=== PATIENT | male | born 1945 | race Caucasian/White ===

== ENCOUNTER → 2020-04-02 14:10 | Outpatient (BNVA) | payer MEDICARE, SELFPAY | PROVIDERS: PCP Nurse Practitioner Family; Visit Provider Internal Medicine Cardiovascular Disease | DX: I34.8 Other nonrheumatic mitral valve disorders (principal) | CPT/HCPCS: 99212 ==

== ENCOUNTER → 2021-04-06 13:15 | Outpatient (BNVA) | payer MEDICARE, SELFPAY | PROVIDERS: PCP Nurse Practitioner Family; Referring Provider Nurse Practitioner Family; Visit Provider Internal Medicine Cardiovascular Disease | DX: I34.8 Other nonrheumatic mitral valve disorders (principal); Z79.82 Long term (current) use of aspirin | CPT/HCPCS: 93005; 99212 ==

== ENCOUNTER → 2022-07-07 15:17 | Outpatient (BNVA) | payer MEDICARE, SELFPAY | PROVIDERS: PCP Nurse Practitioner Family; Referring Provider Nurse Practitioner Family; Visit Provider Internal Medicine Cardiovascular Disease | DX: I34.89 Other nonrheumatic mitral valve disorders (principal) | CPT/HCPCS: 93005; 99212 ==

== ENCOUNTER 2023-07-13 09:24 | Outpatient (AMB) | payer OTHER, SELFPAY ==
[2023-07-13 10:19] VITALS: BP 120/70; PULSE 75; BMI 32.0
--- NOTE | 2023-07-13 10:19 | MHC.OFFVIS ---
Intake Vital Signs 07/13/23 10:19 Height 5 ft 7 in Weight 204 lb 9.423 oz BMI 32.0 BP 120/70 Blood Pressure Location Lt brachial Position Sitting Pulse 75 Intake Visit Reasons: 1 yr f/up Intake Note: pt states that he its doing fine. 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 He was seen for perioperative cardiovascular risk assessment. He had EKG done which showed PVCs and echocardiography showed hyperdynamic left ventricle with systolic anterior motion of the mitral valve chordee without any LVOT obstruction. He was started on beta-mery he underwent surgery which was uneventful. He has gone through recovery and has been quite active without any symptoms. On follow-up is denying any chest discomfort or shortness of breath or dizziness. Physically active without any issues. Blood pressure control is good. Continues do well on follow-up. 07/13/2023: He returns for follow-up after 1 year. He has been doing well. He is exercising every day without any exertional symptoms. No chest discomfort shortness of breath. No dizziness or lightheadedness or palpitations. [facility] Medical History (Updated 07/13/23 @ 10:39 by Ash Kidd MD) Asymptomatic PVCs Sciatica Hip arthritis Surgical History History of wisdom tooth extraction H/O total hip arthroplasty Family History Father Unknown family medical history Mother Unknown family medical history Social History Alcohol intake: current Alcohol intake frequency: a few times a month Alcohol type: beer Patient Tobacco Use Status: Former Tobacco user Quit Date: Years Smoked: 5 years Review of Systems Const Denies chills, Denies fatigue, Denies fever(s), Denies frequent falls, Denies weakness, Denies weight gain and Denies weight loss ENT Denies dizziness Card Denies chest pain, Denies leg edema, Denies lightheadedness, Denies palpitations, Denies dyspnea and Denies dyspnea on exertion Resp Denies cough, Denies dyspnea and Denies dyspnea on exertion GI Denies hematochezia Musc Denies abnormal gait, Denies muscle weakness, Denies numbness, Denies radiating pain into limb and Denies tingling Neuro Denies abnormal gait, Denies dizziness, Denies frequent falls, Denies numbness, Denies tingling and Denies weakness Endo Denies fatigue and Denies palpitations Physical Exam Vital Signs: Last Vital Signs Pulse 75 07/13/23 10:19 BP 120/70 07/13/23 10:19 BMI result Body Mass Index 32.0 GENERAL APPEARANCE: in no acute distress, well developed, well nourished. NECK/THYROID: no carotid bruit, no jugular venous distention. SKIN: no suspicious lesions, warm and dry. HEART: Systolic murmur (decreases with handgrip) regular rate and rhythm, S1, S2 normal. LUNGS: clear to auscultation bilaterally. ABDOMEN: normal, bowel sounds present, soft, nontender, nondistended. EXTREMITIES: no clubbing, cyanosis, or edema. PERIPHERAL PULSES: equal. NEUROLOGIC: nonfocal, alert and oriented. PSYCH: mood/affect full range. Office Procedures EKG Details: Sinus rhythm 75 beats per minute, normal axis, otherwise normal EKG, QTC 470 milliseconds. [id number], Complete Assessment & Plan Assessment & Plan (1) Systolic anterior movement of mitral valve: Code(s): I34.8 - Other nonrheumatic mitral valve disorders (2) Asymptomatic PVCs: Code(s): I49.3 - Ventricular premature depolarization Plan 78-year-old gentleman who is here for follow-up. He was seen for perioperative cardiovascular risk assessment and had premature ventricular complexes with led to echocardiography showing systolic anterior motion of mitral valve chordae only, systolic anterior motion of the mitral valve leaflets was not noted. He was advised to keep himself well hydrated. He underwent surgery and has done fine since then. He is physically active and has no exertional symptoms. Once again I have advised him to keep himself well hydrated. Clinically stable currently. We will repeat echocardiography to reassess the systolic anterior motion of the mitral valve chordae. Thank you for allowing me to participate in the care of your patient. Please feel free to contact me if you have any questions. Orders: Orders CA echo transthorac w con Today I34.8 - Other nonrheumatic mitral valve disorders Coding Level of Care Code Est Pt Level 3 (19866) Diagnoses Systolic anterior movement of mitral valve I34.8 Asymptomatic PVCs I49.3 CPT Codes EKG - CPT: 56204-[id number], Complete ([id number])
== END 2023-07-13 10:44 | disposition home or self-care (01) ==
PROVIDERS: PCP Nurse Practitioner Family; Visit Provider Internal Medicine Cardiovascular Disease
DX: I34.89 Other nonrheumatic mitral valve disorders (principal); I49.3 Ventricular premature depolarization
CPT/HCPCS: 93010; 99213

== ENCOUNTER → 2023-07-13 09:24 | Outpatient (BNVA) | payer OTHER, SELFPAY | PROVIDERS: PCP Nurse Practitioner Family; Visit Provider Internal Medicine Cardiovascular Disease | DX: I34.89 Other nonrheumatic mitral valve disorders (principal); I49.3 Ventricular premature depolarization | CPT/HCPCS: 93005; 99212 ==

== ENCOUNTER → 2023-08-16 10:59 | Outpatient (REF) | payer OTHER, SELFPAY ==
--- NOTE | 2023-08-16 11:01 | CA_ITS ---
Transthoracic Echocardiogram Patient (Last, First, Middle): Olivier Tony S Gender: Male Date of : 1945 Age: 78 Procedure Date: 08/16/2023 Procedure Type: Transthoracic Echocardiogram Location: OP Height: 175.26 cm Weight: 95.26 kg BSA: 2.11 m2 Heart Rate: bpm BP: 140 / 74 mmHg Card Seller: CRISELDA Referring MD: Ash Kidd MD Symptoms: I34.8 - Other nonrheumatic mitral valve disorders Study Quality: Adequate Conclusions: - Normal left ventricular cavity size. There is mildly increased left ventricular wall thickness. The left ventricular systolic function is hyperdynamic. The visually estimated ejection fraction is >70%. - There is no dynamic left ventricular outflow tract obstruction. There is dynamic mid left ventricular obstruction. - Normal right ventricular cavity size and systolic function. Findings Left Ventricle Normal left ventricular cavity size. There is mildly increased left ventricular wall thickness. The left ventricular systolic function is hyperdynamic. The visually estimated ejection fraction is >70%. There is no evidence of regional wall motion abnormalities. There is no dynamic left ventricular outflow tract obstruction. There is dynamic mid left ventricular obstruction. Abnormal diastolic function is noted. Spectral Doppler is indicative of a pseudonormal filling pattern. E/E prime ratio is between 8 and 15 consistent with indeterminate filling pressures. There is moderate septal asymmetric hypertrophy. Normal GLS -17.9%. Right Ventricle Normal right ventricular cavity size and systolic function. Atria The left atrium is normal in size. The right atrium is normal in size. Aortic Valve There is a normal trileaflet aortic valve. There is mild calcification of the aortic valve. There is no aortic valve stenosis. There is trace (trivial) aortic valve regurgitation. Mitral Valve Normal mitral valve structure and function. There is no mitral valve regurgitation. There is no mitral valve stenosis. Pulmonic Valve The pulmonic valve is normal. There is trace pulmonic valve regurgitation. Tricuspid Valve Normal tricuspid valve structure. There is no tricuspid valve regurgitation. Normal right atrial pressure. There is no evidence of pulmonary hypertension. Great Vessels All visible segments of the aorta are normal in size. Venous The inferior vena cava is normal in size and collapses greater than 50% with inspiration. Pericardium/Pleural There is no evidence of pericardial effusion. Prior Study Comparison No significant change compared to prior study dated: 04/10/2019. Measurements 2D Linear Measurements IVSd: 1.38 0.6-0.9/0.6-1.0 cm LVIDd: 3.76 3.9-5.3/4.2-5.9 cm LVIDd Index: 1.78 2.4-3.2/2.2-3.1 cm/m2 LVIDs: 2.12 2.0-3.6 cm LVPWd: 1.07 0.7-1.1 cm LA Diam: 4.40 2.7-3.8/3.0-4.0 cm LAIDs Index: 2.09 1.5-2.3 cm/m2 LV Mass: 193.78 67-162/88-224 g LV Mass Index: 91.84 43-95/49-115 g/m2 LVOT Diam: 2.10 3.0+(-)1.3 cm 2D Systolic Function EF 4C: 69.20 >55% EF 2C: 68.70 >55% EF BiP: 67.40 >55% Mitral Valve MV Pk E: 0.49 MV PK A: 0.90 MV Decel Time: 330.00 E/A: 0.60 E'Lateral: 3.92 E'Medial: 3.81 E/E' Med: 12.90 E/E' Lat: 12.60 PHT: 97.00 MVA PHT: 2.27 Decel [place]: 1.49 Aortic Valve AoV Pk Kyler: 1.43 AoV Mn Kyler: 1.03 AoV VTI: 0.29 AoV Pk Grad: 8.00 Aov Mn Grad: 5.00 KAREEM Cont.VTI: 3.39 LVOT LVOT Pk Kyler: 1.34 LVOT Mn Kyler: 1.13 LVOT VTI: 0.28 LVOT Pk Grad: 7.00 LVOT Mn Grad: 5.00 LVOT Diam: 2.10 LVOT Area: 3.46 Diastolic Function MV Pk E: 0.49 MV Pk A: 0.90 E/A: 0.60 E'Medial: 3.81 E/E' Med: 12.90 E' Laterial: 3.92 E/E' Lat: 12.60 Right Ventricle TAPSE (mm): 20.80 TVS' Kyler: 14.10 Tricuspid Valve RA Press: 3.00 Great Vessels Aorta Sinus of Valsalva: 3.51 2.0-3.[address] [place]: 2.68 1.7-3.4 cm Ao Asc: 3.50 2.1-3.4 cm Updated in Other Vendor System with Status of Final Ash Kidd MD electronically signed on 08/16/2023 12:20:36 PM with status of Final
== END ==
LOC: HO.CARD 10:59
PROVIDERS: Visit Provider Internal Medicine Cardiovascular Disease
DX: I34.81 Nonrheumatic mitral (valve) annulus calcification (principal)
CPT/HCPCS: 93306; 93356

== ENCOUNTER → 2023-08-16 11:01 | Outpatient (BNV) | payer OTHER, SELFPAY | PROVIDERS: Visit Provider Internal Medicine Cardiovascular Disease | DX: I42.1 Obstructive hypertrophic cardiomyopathy (principal) | CPT/HCPCS: 93306; 93356 ==

== ENCOUNTER 2024-03-29 09:53 | Outpatient (AMB) | payer OTHER, SELFPAY ==
--- NOTE | 2024-03-29 09:58 | MHC.PC.OV ---
Vital Signs 03/29/24 10:01 Height 5 ft 9 in Weight 200 lb 8 oz BMI 29.6 BP 130/70 Blood Pressure Location Rt brachial Position Sitting Respiration 14 Pulse 69 Pulse Source Pulse Oximeter Temp 97.4 F Temp Source Oral Pulse Oximetry (%) 97 Oxygen Delivery Method Room Air Intake Visit Reasons: [id number] Intake Note: establish care Allergies Penicillins [PENICILLINS] Allergy (Intermediate, Verified 03/29/24 09:59) SWELLING OF THUMBS penicillin V Allergy (Unknown, Verified 03/29/24 09:59) hives Tobacco use date assessed: 03/29/24 Fall risk assessment: No Falls in past year Last assessed Fall Risk: 03/29/24 Dental Screening Dental Screen Date: 03/29/24 Did you have a dental visit in the last 12 months?: No Did you have a dental problem in the last 6 months where you did not have access to dental care?: No Was dental information given to patient?: Patient has dentist HPI [id number] HPI Details New Patient? ?? Prior PCP:? Last office visit/CPE:? Acute issue(s):? ?? PMHx:??PVCs. Anterior?movement?of?mitral?valve chodee without?of?outlet?flow?obstruction. Followed?by?cardiology: ?EKG showed PVCs and echocardiography showed hyperdynamic left ventricle with systolic anterior motion of the mitral valve chordee without any LVOT obstruction. SurgHx:? R Hip replacement SocHx: Nonsmoker. EtOH1 beer a week. PFSH Medical History Asymptomatic PVCs Sciatica Hip arthritis Surgical History History of wisdom tooth extraction H/O total hip arthroplasty Family History Father Unknown family medical history Mother Unknown family medical history Social History Housing: House Alcohol intake: current Alcohol intake frequency: a few times a month Alcohol type: beer Patient Tobacco Use Status: Former Tobacco user Years Smoked: 5 years e-Cigarette/Vaping Use: Never Used service: Yes Current occupational status: retired Current occupational exposures/hazards: No Cognitive needs: No Hearing needs: No Vision needs: Yes Questionnaire PHQ-9 Over the last 2 weeks, how often have you been bothered by any of the following problems? 1. Little interest or pleasure in doing things: not at all 2. Feeling down, depressed, or hopeless: not at all 3. Trouble falling or staying asleep, or sleeping too much: not at all 4. Feeling tired or having little energy: not at all 5. Poor appetite or overeating: not at all 6. Feeling bad about yourself - or that you are a failure or have let yourself or your family down: not at all 7. Trouble concentrating on things, such as reading the newspaper or watching television: not at all 8. Moving or speaking so slowly that other people could have noticed. Or the opposite - being so fidgety or restless that you have been moving around a lot more than usual: not at all 9. Thoughts that you would be better off or of hurting yourself in some way: not at all Total score: 0 Depression Screening Interpretation: Negative Depression Screening Done: Yes 13933 - PHQ-9 Billing: Yes Source: Developed by Drs. Tee Yu, Lanny Dixon, iMles Zee and colleagues, with an educational delphine from [employer]. Thrive Questionnaire Date Thrive assessed: 03/29/24 I am a: Patient What is your living situation today?: I have a steady place to live Within the past 12 months, did the food you bought not last and you didn't have the money to get more?: Never true Within the past 12 months, did you worry whether your food would run out before you got money to buy more?: Never true Do you have trouble paying for medicines?: No Do you have trouble getting transportation to medical appointments?: No Do you have trouble paying your heating and electricity bill?: No Do you have trouble taking care of your child, family member or friend?: No Do you have trouble with day-to-day activities such as bathing, preparing meals, shopping, managing finances, etc.?: No Are you currently unemployed and looking for a job?: No Are you interested in more education?: No Please select the resources that you would like help with: None Currently or been in a relationship where the following occur: No concerns reported THRIVE Score: 0 AUDIT C Alcohol Use Questionnaire (AUDIT-C) 1. How often do you have a drink containing alcohol?: 2-3 times a week 2. How many drinks containing alcohol do you have on a typical day when you are drinking?: 1 or 2 3. How often do you have six or more drinks on one occasion?: Never Total Score: 3 JENNIFER-7 AMB Questionnaire JENNIFER-7 Date JENNIFER - 7 assessed: 03/29/24 Feeling nervous, anxious, or on edge: 0 = Not at all Not being able to stop or control worryin = Not at all Worrying too much about different things: 0 = Not at all Trouble relaxin = Not at all Being so restless that it is hard to sit still: 0 = Not at all Becoming easily annoyed or irritable: 0 = Not at all Feeling afraid as if something awful might happen: 0 = Not at all Total JENNIFER-7 score (0-4 normal; 5-9 mild; 10-14 moderate; 15-21 severe): 0 Source: Developed by Drs. Tee Yu, Lanny Dixon, Miles Zee and colleagues, with an educational delphine from [employer]. JENNIFER-7 Assessment Billing JENNIFER-7 Assessment Tool: JENNIFER-7 Assessment 61001 Review of Systems Const Denies chills, Denies fatigue, Denies fever(s), Denies headache(s) and Denies weakness Eyes Denies change in vision ENT Denies dizziness, Denies headache(s), Denies hearing loss, Denies nasal congestion, Denies sinus pain, Denies sinus pressure and Denies sore throat Card Denies chest pain, Denies lightheadedness, Denies dyspnea and Denies other (palpitations) Resp Denies cough, Denies dyspnea and Denies wheezing GI Denies abdominal pain, Denies melena, Denies hematochezia, Denies change in bowel habits, Denies dyspepsia and Denies nausea Denies hematuria and Denies dysuria Musc Denies abnormal gait, Denies myalgias, Denies arthralgias, Denies numbness and Denies tingling Skin/Breast Denies rash, Denies unusual bruising and Denies wounds Neuro Denies abnormal gait, Denies dizziness, Denies headache(s), Denies memory loss, Denies numbness, Denies Sensory deficit (Neuro), Denies tingling and Denies weakness Psych Denies anxiety, Denies depression and Denies memory loss Endo Denies cold intolerance, Denies fatigue, Denies heat intolerance, Denies polydipsia and Denies polyuria Carter/Lymph Denies easy bleeding and Denies easy bruising Aller/Immun Denies wheezing Physical exam (Primary Care) Vital Signs: Last Vital Signs Temp 97.4 F 03/29/24 10:01 Pulse 69 03/29/24 10:01 Resp 14 03/29/24 10:01 BP 130/70 03/29/24 10:01 Pulse Ox 97 03/29/24 10:01 Oxygen Delivery Method Room Air 03/29/24 10:01 BMI result Body Mass Index 29.6 Tobacco/Smoking Status: Tobacco use Status Tobacco use date assessed 03/29/24 03/29/24 10:05 Patient Tobacco Use Status Former Tobacco user 03/29/24 10:05 e-Cigarette/Vaping Use Never Used 03/29/24 10:05 PHQ-9: PHQ-9 Score PHQ-9: Total score 0 03/29/24 10:11 Depression Screening Interpretation: Negative Thrive Assessment: Date of Thrive Assessment Date Thrive assessed 03/29/24 03/29/24 10:05 Currently or been in a relationship where the following occur: No concerns reported Const General: no acute distress, well developed, alert and awake Nutritional Appearance: well nourished Orientation/consciousness: patient oriented x3 HENMT Head: Yes normocephalic and Yes atraumatic Ears: hearing grossly normal bilaterally and TM's normal bilaterally General nose exam: Normal external nose present and Normal nares present Mouth: Normal oral and palatal mucosa present and moist mucous membranes Teeth and gingiva: dentition normal Throat: Yes posterior oropharynx normal Eyes General: appearance normal, both eyes and all related structures Pupils: Equal, round and reactive pupils present and Pupil accommodation reflex normal EOM: EOMs intact bilaterally Neck Neck: Yes normal visual inspection, Yes no lymphadenopathy and Yes trachea midline Thyroid: Thyroid normal Carotids: no bruits Lymphatic: no lymphadenopathy noted Chest Chest palpation & inspection: normal inspection of the chest Resp Effort & Inspection: normal respiratory effort Auscultation: clear to auscultation bilaterally Cardio Rate: regular rate Rhythm: regular rhythm Heart sounds: S1 normal heart sound present, S2 normal heart sound present, no gallops, Murmur heart sound present and no rubs Bruits: no abdominal aortic bruits and no carotid bruits GI Palpation (GI): No Abdominal aortic bruit present, Soft to palpation, nontender, No hepatosplenomegaly present and No Rebound tenderness present Auscultation: normal bowel sounds General: Yes no CVA tenderness Back/Spine/Pelvis Back: no CVA tenderness Cervical Spine: cervical ROM normal and No Cervical spine tenderness Thoracic/Lumbar Spine: thoraco-lumbar ROM normal, No pain with thoraco-lumbar ROM, No thoracic spinal tenderness and No lumbar spinal tenderness Skin Lesions: no lesions Rashes: no rashes Trauma: no lacerations or abrasions Wounds: no wounds Nails: normal Neuro General: patient oriented x3 Cranial nerves: Yes Equal, round and reactive pupils present Cognition (Neuro): normal cognition Gait exam (Neuro): Normal gait present Motor exam (neuro): 5/5 motor strength present throughout Sensory Exam: No Sensory deficit (Neuro) Deep tendon reflexes (DTR's): Right patellar reflex intensity grade: 2+ and Left patellar reflex intensity grade: 2+ Extrem General: Yes normal to inspection and No edema Psych Appearance: grossly normal Affect: normal affect Attitude: cooperative Thought process: Normal thought process present Coding Level of Care Code New Pt Level 3 (06061) New Pt Prev Care >65yr (96187) Diagnoses Asymptomatic PVCs I49.3 Systolic anterior movement of mitral valve I34.8 Systolic murmur R01.1 Screening for colon cancer Z12.11 Screening PSA (prostate specific antigen) Z12.5 Adult general medical exam Z00.00 Additional Codes JENNIFER-7 Assessment Billing - JENNIFER-7 Assessment Tool: JENNIFER-7 Assessment 88385 ([id number]) PHQ-9 - 85162 - PHQ-9 Billing: Yes ([id number]) Assessment & Plan Assessment & Plan (1) Asymptomatic PVCs: Code(s): I49.3 - Ventricular premature depolarization Category: Medical Plan: Controlled?with?metoprolol Stable Continue?metoprolol?and?follow-up?with?Cardiology?as?recommended (2) Systolic anterior movement of mitral valve: Code(s): I34.8 - Other nonrheumatic mitral valve disorders Category: Medical Plan: Stable.??Followed?by?Cardiology?annually There?was?no?evidence?of?low?obstruction.??Patient?is?able?due?exercise?and is?not?injured?in?any?way. Follow-up?Cardiology?as?recommended (3) Systolic murmur: Code(s): R01.1 - Cardiac murmur, unspecified Category: Medical Plan: Prominent?systolic?murmur?over?mitral?and?aortic?regions, due?to?mitral?valve?changes?listed?above. Stable (4) Screening for colon cancer: Code(s): Z12.11 - Encounter for screening for malignant neoplasm of colon Category: Medical Plan: Will?discuss?with?patient?at?is?follow-up?appointment (5) Screening PSA (prostate specific antigen): Code(s): Z12.5 - Encounter for screening for malignant neoplasm of prostate Category: Medical Plan: Will?check?PSA (6) Adult general medical exam: Code(s): Z00.00 - Encounter for general adult medical examination without abnormal findings Category: Medical Plan: 78-year-old?male?presents as?new?patient?for?extended?exam Encouraged?healthy?diet?with?active?lifestyle?and?plenty?of?exercise Patient?notes?that?he?continues?to?lift?weight?and?walk
[2024-03-29 10:01] VITALS: BP 130/70; PULSE 69; RESP 14; TEMP 36.3; O2SAT 97; BMI 29.6
== END 2024-03-29 10:32 | disposition home or self-care (01) ==
PROVIDERS: PCP Family Medicine; Visit Provider Family Medicine
DX: Z00.00 Encounter for general adult medical examination without abnormal findings (principal); I49.3 Ventricular premature depolarization; I34.89 Other nonrheumatic mitral valve disorders; R01.1 Cardiac murmur, unspecified; Z12.11 Encounter for screening for malignant neoplasm of colon; Z12.5 Encounter for screening for malignant neoplasm of prostate

== ENCOUNTER → 2024-03-29 09:53 | Outpatient (BNVA) | payer OTHER, SELFPAY | PROVIDERS: PCP Family Medicine; Visit Provider Family Medicine | DX: Z00.00 Encounter for general adult medical examination without abnormal findings (principal); I49.3 Ventricular premature depolarization; I34.89 Other nonrheumatic mitral valve disorders; R01.1 Cardiac murmur, unspecified | CPT/HCPCS: 96127; 99387 ==

== ENCOUNTER 2024-04-18 10:47 | Outpatient (REF) | payer OTHER, SELFPAY ==
[2024-04-18 14:24] LABS: Appearance Urine Clear; Color Urine Yellow; Glucose Urine UA Negative (Negative); Leukocyte Esterase Urine Negative (Negative); Nitrite Urine Negative (Negative); PH 6.5 (5.0-9.0); Specific Gravity - Urine >= 1.030 (1.005-1.025); Urine Blood Negative (Negative); Urine Ketones Negative (Negative); Urine Protein Negative (Neg-Trace)
[2024-04-18 14:28] LABS: MANUAL DIFF FLAG NO
[2024-04-18 14:52] LABS: Basophils Percent Auto 0.3 % (0-2); Eosinophils Absolute Auto 0.2 X10*3/uL (0.0-0.4); Eosinophils Percent Auto 3.2 % (0-4); Hematocrit 45.7 % (42.0-52.0); Hemoglobin 15.5 g/dl (14.0-18.0); Imm Gran Abs Auto 0.04 X10*3/uL (0.00-0.03); Imm Gran Pct Auto 0.6 % (0.0-0.4); Lymphocytes Absolute Auto 2.1 X10*3/uL (1.2-4.9); Lymphocytes Percent Auto 29.9 % (20-40); Mean Corpuscular HGB Conc 33.9 g/dl (31.0-36.0); Mean Corpuscular Hemoglobin 32.3 pg (27.0-33.0); Mean Corpuscular Volume 95.2 fL (80.0-98.0); Mean Platelet Volume 11.5 fL (9.4-12.4); Monocytes Absolute Auto 0.6 X10*3/uL (0.1-1.2); Monocytes Percent Auto 8.1 % (2-11); Neutrophils Absolute Auto 4.2 x10*3/uL (2.0-8.3); Neutrophils Percent Auto 57.9 % (45-73); Platelet Count 364 X10*3/uL (160-400); Red Cell Distribution Width 13.3 % (11.0-16.0); White Blood Count 7.2 X10*3/uL (4.8-10.8)
[2024-04-18 14:55] LABS: Creatinine Urine 177.27 mg/dL; Microalbum/Creatinine Ratio Ur 3.9 ug/mg cr (<30)
[2024-04-18 14:59] LABS: Alanine Aminotransferase 35 U/L (0-40); Alkaline Phosphatase 78 U/L (39-117); Anion Gap 14 (12-20); Aspartate Amino Transferase 35 U/L (5-37); Bilirubin Total 1.1 mg/dL (0.0-1.0); Blood Urea Nitrogen 15 mg/dL (9-16); Calcium 9.7 mg/dL (8.4-10.2); Carbon Dioxide 28 mmol/L (22-29); Chloride 106 mmol/L (96-108); Cholesterol 202 mg/dL (<200); Estimated Glomerular Filt Rate 56; Glucose Fasting 132 mg/dL (60-99); HDL Cholesterol 44 mg/dL (>40); LDL Cholesterol Calculated 136 mg/dL (<100); Potassium 4.5 mmol/L (3.3-5.1); Sodium 143 mmol/L (135-145); Total Protein 7.9 g/dL (6.5-8.0); Triglycerides 111 mg/dL (<150)
[2024-04-18 15:10] LABS: Prostate Specific Antigen Scr 1.67 ng/mL (<0.05-4.0)
[2024-04-18 15:18] LABS: TSH reflex Free T4 5.04 uIU/mL (0.32-4.0)
[2024-04-18 16:51] LABS: Free T4 (Free Thyroxine) 0.86 ng/dL (0.71-1.85)
== END 2024-04-18 10:48 | disposition home or self-care (01) ==
LOC: HO.WFDLDS 10:47
PROVIDERS: Visit Provider Family Medicine
DX: Z00.00 Encounter for general adult medical examination without abnormal findings (principal); I10 Essential (primary) hypertension; Z12.5 Encounter for screening for malignant neoplasm of prostate
CPT/HCPCS: 36415; 80053; 80061; 81003; 82043; 82570; 84153; 84439; 84443; 85025

== ENCOUNTER 2024-04-27 09:39 | Outpatient (AMB) | payer MEDICARE, SELFPAY ==
--- NOTE | 2024-04-27 09:51 | MHC.PC.OV ---
Vital Signs 04/27/24 09:52 Height 5 ft 9 in Weight 202 lb BMI 29.8 BP 130/70 Blood Pressure Location Rt brachial Position Sitting Respiration 16 Pulse 84 Pulse Source Pulse Oximeter Temp 97.4 F Temp Source Oral Pulse Oximetry (%) 98 Oxygen Delivery Method Room Air Intake Visit Reasons: f/u CPE-labs Intake Note: lab review Allergies Penicillins [PENICILLINS] Allergy (Intermediate, Verified 04/27/24 09:52) SWELLING OF THUMBS penicillin V Allergy (Unknown, Verified 04/27/24 09:52) hives Medication List - Last Reconciled 04/27/24 by Rao Jara MD aspirin (Adult Low Dose Aspirin) 81 mg PO DAILY metoprolol tartrate 25 mg PO BID Tobacco use date assessed: 03/29/24 Dental Screening Dental Screen Date: 03/29/24 HPI f/u CPE-labs HPI Details 78 y/o male presents to f/u CPE-labs via telemedicine. Labs drawn 04/18/24. Reviewed labs with pt. Elevated fasting glucose of 132. A1c today 6.0%. Triglycerides 111. TC 202. LDL 136. HDL 44. TSH elevated at 5.04. HPI Comments History of Present Illness Details Documentation assistance for Rao Jara MD, was provided by John Sanon,? Supervisor [employer] on 04/27/2024 at 10:16 AM FABRICE. I, Dr. Jara, have read, observed, and verified documentation. ?? ON LICENSE OF [facility] Medical History Asymptomatic PVCs Sciatica Hip arthritis Surgical History History of wisdom tooth extraction H/O total hip arthroplasty Family History Father Unknown family medical history Mother Unknown family medical history Social History Housing: House Alcohol intake: current Alcohol intake frequency: a few times a month Alcohol type: beer Patient Tobacco Use Status: Former Tobacco user Years Smoked: 5 years e-Cigarette/Vaping Use: Never Used service: Yes Current occupational status: retired Current occupational exposures/hazards: No Cognitive needs: No Hearing needs: No Vision needs: Yes Questionnaire PHQ-9 Over the last 2 weeks, how often have you been bothered by any of the following problems? 1. Little interest or pleasure in doing things: not at all 2. Feeling down, depressed, or hopeless: not at all 3. Trouble falling or staying asleep, or sleeping too much: not at all 4. Feeling tired or having little energy: not at all 5. Poor appetite or overeating: not at all 6. Feeling bad about yourself - or that you are a failure or have let yourself or your family down: not at all 7. Trouble concentrating on things, such as reading the newspaper or watching television: not at all 8. Moving or speaking so slowly that other people could have noticed. Or the opposite - being so fidgety or restless that you have been moving around a lot more than usual: not at all 9. Thoughts that you would be better off or of hurting yourself in some way: not at all Total score: 0 Source: Developed by Drs. Tee Yu, Lanny Dixon, Miles Zee and colleagues, with an educational delphine from [employer]. Thrive Questionnaire Date Thrive assessed: 04/24/24 I am a: Patient What is your living situation today?: I have a steady place to live Within the past 12 months, did the food you bought not last and you didn't have the money to get more?: Never true Within the past 12 months, did you worry whether your food would run out before you got money to buy more?: Never true Do you have trouble paying for medicines?: No Do you have trouble getting transportation to medical appointments?: Yes Do you have trouble paying your heating and electricity bill?: No Do you have trouble taking care of your child, family member or friend?: No Do you have trouble with day-to-day activities such as bathing, preparing meals, shopping, managing finances, etc.?: No Are you currently unemployed and looking for a job?: No Are you interested in more education?: No Please select the resources that you would like help with: None Currently or been in a relationship where the following occur: No concerns reported THRIVE Score: 1 AUDIT C Alcohol Use Questionnaire (AUDIT-C) 1. How often do you have a drink containing alcohol?: Monthly or less 2. How many drinks containing alcohol do you have on a typical day when you are drinking?: 1 or 2 3. How often do you have six or more drinks on one occasion?: Never Total Score: 1 JENNIFER-7 AMB Questionnaire JENNIFER-7 Date JENNIFER - 7 assessed: 03/29/24 Feeling nervous, anxious, or on edge: 0 = Not at all Not being able to stop or control worryin = Not at all Worrying too much about different things: 0 = Not at all Trouble relaxin = Not at all Being so restless that it is hard to sit still: 0 = Not at all Becoming easily annoyed or irritable: 0 = Not at all Feeling afraid as if something awful might happen: 0 = Not at all Total JENNIFER-7 score (0-4 normal; 5-9 mild; 10-14 moderate; 15-21 severe): 0 Source: Developed by Drs. Tee Yu, Lanny Dixon, Miles Zee and colleagues, with an educational delphine from [employer]. Review of Systems Const Denies chills, Denies fatigue, Denies fever(s), Denies headache(s) and Denies weakness ENT Denies dizziness and Denies headache(s) Card Denies dyspnea Resp Denies cough, Denies dyspnea, Denies wheezing and Denies other (shortness of breath) Musc Denies numbness and Denies tingling Neuro Denies dizziness, Denies headache(s), Denies numbness, Denies tingling and Denies weakness Psych Denies anxiety and Denies depression Endo Denies fatigue Aller/Immun Denies wheezing Physical exam (Primary Care) Vital Signs: Last Vital Signs Temp 97.4 F 04/27/24 09:52 Pulse 84 04/27/24 09:52 Resp 16 04/27/24 09:52 BP 130/70 04/27/24 09:52 Pulse Ox 98 04/27/24 09:52 Oxygen Delivery Method Room Air 04/27/24 09:52 BMI result Body Mass Index 29.8 Tobacco/Smoking Status: Tobacco use Status Tobacco use date assessed 03/29/24 04/27/24 09:51 Patient Tobacco Use Status Former Tobacco user 04/27/24 09:51 e-Cigarette/Vaping Use Never Used 04/27/24 09:51 PHQ-9: PHQ-9 Score PHQ-9: Total score 0 04/27/24 10:13 Thrive Assessment: Date of Thrive Assessment Date Thrive assessed 04/24/24 04/27/24 09:51 Currently or been in a relationship where the following occur: No concerns reported Const General: well developed; No acute distress Nutritional Appearance: well nourished Orientation/consciousness: patient oriented x3 HENMT Head: Yes normocephalic and Yes atraumatic Eyes General: appearance normal, both eyes and all related structures Pupils: Equal, round and reactive pupils present EOM: EOMs intact bilaterally Resp Effort & Inspection: normal respiratory effort Neuro General: patient oriented x3 and gait normal Cranial nerves: Yes Equal, round and reactive pupils present Psych Affect: normal affect Coding Level of Care Code Est Pt Level 3 (63029) Diagnoses Hyperlipidemia E78.5 Elevated TSH R79.89 Pre-diabetes R73.03 Assessment & Plan Assessment & Plan (1) Hyperlipidemia: Code(s): E78.5 - Hyperlipidemia, unspecified Category: Medical Plan: LDL?cholesterol?is?high.??Goal?is?less?100 Encouraged?a?diet?lower?in?saturated?fats?and?cholesterol We?can?recheck?at?next?blood?draw?and?discuss?at?next?visit (2) Elevated TSH: Code(s): R79.89 - Other specified abnormal findings of blood chemistry Category: Medical Plan: TSH?is?elevated?though?T4?is?within?range. No?history?of?hypothyroidism Will?recheck?this?with?next?blood?draw?and?follow-up?with?patient. (3) Pre-diabetes: Code(s): R73.03 - Prediabetes Category: Medical Plan: Fasting?blood?sugars?elevated.??A1c?is?6.0%.??Pre?diabetes Encouraged?patient?to?work?on?a?diet?lower?in?sugars?and?starches Encouraged?weight?control?and?exercise Orders: Orders Free T4 (Free Thyroxine) Today E03.9 - Hypothyroidism, unspecified Thyroid Stimulating Hormone Today E03.9 - Hypothyroidism, unspecified Triiodothyronine T3 Total Today E03.9 - Hypothyroidism, unspecified Basic Metabolic Panel Fasting Today E78.5 - Hyperlipidemia, unspecified Lipid Panel Today E78.5 - Hyperlipidemia, unspecified, Z00.00 - Encounter for general adult medical examination without abnormal findings Hemoglobin A1c Today R73.01 - Impaired fasting glucose, R73.03 - Prediabetes
[2024-04-27 09:52] VITALS: BP 130/70; PULSE 84; RESP 16; TEMP 36.3; O2SAT 98; BMI 29.8
== END 2024-04-27 10:30 | disposition home or self-care (01) ==
PROVIDERS: PCP Family Medicine; Visit Provider Family Medicine
DX: E78.5 Hyperlipidemia, unspecified (principal); R79.89 Other specified abnormal findings of blood chemistry; R73.03 Prediabetes

== ENCOUNTER → 2024-04-27 09:39 | Outpatient (BNVA) | payer MEDICARE, SELFPAY | PROVIDERS: PCP Family Medicine; Visit Provider Family Medicine | DX: E78.5 Hyperlipidemia, unspecified (principal); R79.89 Other specified abnormal findings of blood chemistry; R73.03 Prediabetes | CPT/HCPCS: 99212 ==

== ENCOUNTER 2024-06-26 07:52 | Outpatient (REF) | payer MEDICARE, SELFPAY ==
[2024-06-26 11:40] LABS: Estimated Average Glucose 126 mg/dL; Total Hemoglobin (HGBA1C) 3900.0011 umol/L
[2024-06-26 11:54] LABS: Anion Gap 11 (12-20); Blood Urea Nitrogen 13 mg/dL (9-16); Calcium 9.7 mg/dL (8.4-10.2); Carbon Dioxide 27 mmol/L (22-29); Chloride 106 mmol/L (96-108); Cholesterol 204 mg/dL (<200); Estimated Glomerular Filt Rate > 60; Glucose Fasting 118 mg/dL (60-99); HDL Cholesterol 50 mg/dL (>40); Potassium 4.4 mmol/L (3.3-5.1); Sodium 140 mmol/L (135-145)
[2024-06-26 11:56] LABS: Free T4 (Free Thyroxine) 0.87 ng/dL (0.71-1.85); Thyroid Stimulating Hormone 6.25 uIU/mL (0.32-4.0)
[2024-06-26 12:20] LABS: LDL Cholesterol Calculated 125 mg/dL (<100); Triglycerides 146 mg/dL (<150)
[2024-06-27 06:52] LABS: Triiodothyronine T3 Total 106 ng/dL (76-181)
== END 2024-06-26 07:53 | disposition home or self-care (01) ==
LOC: HO.WFDLDS 07:52
PROVIDERS: Visit Provider Family Medicine
DX: Z00.00 Encounter for general adult medical examination without abnormal findings (principal); E03.9 Hypothyroidism, unspecified; E78.5 Hyperlipidemia, unspecified; R73.01 Impaired fasting glucose; R73.03 Prediabetes; R79.89 Other specified abnormal findings of blood chemistry; I10 Essential (primary) hypertension
CPT/HCPCS: 36415; 80048; 80061; 83036; 84439; 84443; 84480; 99212

== ENCOUNTER 2024-06-26 11:37 | Outpatient (AMB) | payer MEDICARE, SELFPAY ==
--- NOTE | 2024-06-26 11:41 | A.OFFPC_ITS ---
Vital Signs 06/26/24 11:42 Height 5 ft 9 in Weight 203 lb 4 oz BMI 30.0 BP 140/80 H Blood Pressure Location Rt brachial Position Sitting Respiration 12 Pulse 75 Pulse Source Pulse Oximeter Temp 97.7 F Temp Source Oral Pulse Oximetry (%) 97 Oxygen Delivery Method Room Air Intake Visit Reasons: f/u labs Intake Note: patient is scheduled for follow up labs Nature Photographer Required: No Allergies Penicillins [PENICILLINS] Allergy (Intermediate, Verified 06/26/24 11:41) SWELLING OF THUMBS penicillin V Allergy (Unknown, Verified 06/26/24 11:41) hives Tobacco use date assessed: 03/29/24 Dental Screening Dental Screen Date: 03/29/24 HPI f/u labs HPI Details 79 y/o male presents to f/u HLD, pre-annabel betes, elevated TSH. Labs drawn 06/26/24. Reviewed labs with pt. A1c 6.0%. Fasting glucose 118. TSH 6.25. Triglycerides 146. TC 204. LDL 125. HDL 50. PFSH Medical History Asymptomatic PVCs Sciatica Hip arthritis Surgical History History of wisdom tooth extraction H/O total hip arthroplasty Family History Father Unknown family medical history Mother Unknown family medical history Social History Housing: House Alcohol intake: current Alcohol intake frequency: a few times a month Alcohol type: beer Patient Tobacco Use Status: Former Tobacco user Years Smoked: 5 years e-Cigarette/Vaping Use: Never Used service: Yes Current occupational status: retired Current occupational exposures/hazards: No Cognitive needs: No Hearing needs: No Vision needs: Yes Questionnaire Thrive Questionnaire Date Thrive assessed: 04/24/24 I am a: Patient What is your living situation today?: I have a steady place to live Within the past 12 months, did the food you bought not last and you didn't have the money to get more?: Never true Within the past 12 months, did you worry whether your food would run out before you got money to buy more?: Never true Do you have trouble paying for medicines?: No Do you have trouble getting transportation to medical appointments?: Yes Do you have trouble paying your heating and electricity bill?: No Do you have trouble taking care of your child, family member or friend?: No Do you have trouble with day-to-day activities such as bathing, preparing meals, shopping, managing finances, etc.?: No Are you currently unemployed and looking for a job?: No Are you interested in more education?: No Please select the resources that you would like help with: None Currently or been in a relationship where the following occur: No concerns reported THRIVE Score: 1 JENNIFER-7 AMB Questionnaire JENNIFER-7 Date JENNIFER - 7 assessed: 03/29/24 Source: Developed by Drs. Tee Yu, Lanny Dixon, Miles Zee and colleagues, with an educational delphine from [employer]. Review of Systems Const Denies chills, Denies fatigue, Denies fever(s), Denies headache(s) and Denies weakness ENT Denies dizziness and Denies headache(s) Card Denies dyspnea Resp Denies cough, Denies dyspnea, Denies wheezing and Denies other (shortness of breath) Musc Denies numbness and Denies tingling Neuro Denies dizziness, Denies headache(s), Denies numbness, Denies tingling and Denies weakness Psych Denies anxiety and Denies depression Endo Denies fatigue Aller/Immun Denies wheezing Physical exam (Primary Care) Vital Signs: Last Vital Signs Temp 97.7 F 06/26/24 11:42 Pulse 75 06/26/24 11:42 Resp 12 06/26/24 11:42 BP 140/80 H 06/26/24 11:42 Pulse Ox 97 06/26/24 11:42 Oxygen Delivery Method Room Air 06/26/24 11:42 BMI result Body Mass Index 30.0 Tobacco/Smoking Status: Tobacco use Status Tobacco use date assessed 03/29/24 06/26/24 11:45 Patient Tobacco Use Status Former Tobacco user 06/26/24 11:45 e-Cigarette/Vaping Use Never Used 06/26/24 11:45 Thrive Assessment: Date of Thrive Assessment Date Thrive assessed 04/24/24 06/26/24 11:45 Currently or been in a relationship where the following occur: No concerns reported Const General: well developed; No acute distress Nutritional Appearance: well nourished Orientation/consciousness: patient oriented x3 [facility] Head: Yes normocephalic and Yes atraumatic Eyes General: appearance normal, both eyes and all related structures Pupils: Equal, round and reactive pupils present EOM: EOMs intact bilaterally Resp Effort & Inspection: normal respiratory effort Auscultation: clear to auscultation bilaterally Cardio Rate: regular rate Rhythm: regular rhythm Heart sounds: S1 normal heart sound present, S2 normal heart sound present, no gallops, no murmurs and no rubs Neuro General: patient oriented x3 and gait normal Cranial nerves: Yes Equal, round and reactive pupils present Psych Affect: normal affect Coding Level of Care Code Est Pt Level 4 (41111) Diagnoses Hyperlipidemia E78.5 Pre-diabetes R73.03 Elevated TSH R79.89 Hypertension I10 Assessment & Plan Assessment & Plan (1) Hyperlipidemia: Code(s): E78.5 - Hyperlipidemia, unspecified Category: Medical Plan: LDL?cholesterol?has?improved?as?has?HDL LDL?cholesterol?is?still?above?goal Encouraged?ongoing diet?low?in?saturated?fats?and?cholesterol Encouraged?weight?loss?and?exercise (2) Pre-diabetes: Code(s): R73.03 - Prediabetes Category: Medical Plan: A1c?6.0%?and?steady Continue?working?at?a?diet?low?in?sugars?and?starches,?exercise?and?weight?loss (3) Elevated TSH: Code(s): R79.89 - Other specified abnormal findings of blood chemistry Category: Medical Plan: TSH?is?again?elevated?though?T4?is?in?normal?range. T3?is?still?pending Patient?denies?any?symptoms Will?await?T3?and?if?low?will?call?patient?to?discuss?treating. If?T3?is?in?normal?range?also,?will?recheck?again?in?a?few?months?as?patient?is? asymptomatic. If?his?TSH?continues?to?climb,?would?discuss?treatment (4) Hypertension: Code(s): I10 - Essential (primary) hypertension Category: Medical Plan: Blood?pressure?is?little?elevated?today. Has?been?controlled?previously No?changes?to?medications?today Had?advise?some?weight?loss?and?exercise Will?review?at?his?next?visit Orders: Orders Lipid Panel 1 Day E78.5 - Hyperlipidemia, unspecified, Z00.00 - Encounter for general adult medical examination without abnormal findings Comprehensive [place]. Panel Fast Today R79.89 - Other specified abnormal findings of blood chemistry, Z00.00 - Encounter for general adult medical examination without abnormal findings Free T4 (Free Thyroxine) Today E03.9 - Hypothyroidism, unspecified, R79.89 - Other specified abnormal findings of blood chemistry Triiodothyronine T3 Total 1 Day E03.9 - Hypothyroidism, unspecified, R79.89 - Other specified abnormal findings of blood chemistry Thyroid Stimulating Hormone 1 Day E03.9 - Hypothyroidism, unspecified, R79.89 - Other specified abnormal findings of blood chemistry Hemoglobin A1c Today R73.01 - Impaired fasting glucose, R73.03 - Prediabetes
[2024-06-26 11:42] VITALS: BP 140/80; PULSE 75; RESP 12; TEMP 36.5; O2SAT 97
== END 2024-06-26 13:01 | disposition home or self-care (01) ==
LOC: HO.HMCFM 11:38
PROVIDERS: PCP Family Medicine; Visit Provider Family Medicine
DX: E78.5 Hyperlipidemia, unspecified (principal); R73.03 Prediabetes; R79.89 Other specified abnormal findings of blood chemistry; I10 Essential (primary) hypertension

== ENCOUNTER 2024-07-11 09:27 | Outpatient (AMB) | payer MEDICARE, SELFPAY ==
--- NOTE | 2024-07-11 09:59 | MHC.OFFVIS ---
Vital Signs 07/11/24 10:00 Height 5 ft 9 in Weight 204 lb 2.369 oz BMI 30.1 BP 130/80 Blood Pressure Location Lt brachial Position Sitting Pulse 68 Pulse Source Monitor Intake Visit Reasons: 1 year follow-up Intake Note: 1 yr f/up Corporate Auditor Required: No Accompanied by: Self / Same As Patient Allergies Penicillins [PENICILLINS] Allergy (Intermediate, Verified 06/26/24 11:41) SWELLING OF THUMBS penicillin V Allergy (Unknown, Verified 06/26/24 11:41) hives Medication List - Last Reconciled 07/11/24 by Ash Kidd MD aspirin (Adult Low Dose Aspirin) 81 mg PO DAILY metoprolol tartrate 25 mg PO BID HPI Comments Details: 79-year-old gentleman here for follow-up. He was seen for perioperative cardiovascular risk assessment. He had EKG done which showed PVCs and echocardiography showed hyperdynamic left ventricle with systolic anterior motion of the mitral valve chordee without any LVOT obstruction. He was started on beta-mery he underwent surgery which was uneventful. He has gone through recovery and has been quite active without any symptoms. On follow-up is denying any chest discomfort or shortness of breath or dizziness. Physically active without any issues. Blood pressure control is good. Continues do well on follow-up. 07/13/2023: He returns for follow-up after 1 year. He has been doing well. He is exercising every day without any exertional symptoms. No chest discomfort shortness of breath. No dizziness or lightheadedness or palpitations. 07/11/2024: He is here for yearly follow-up visit. Continues to be asymptomatic. No dizziness or lightheadedness. No chest discomfort or palpitations. Echocardiography from August 2023 was reviewed. [facility] Medical History Asymptomatic PVCs Sciatica Hip arthritis Surgical History History of wisdom tooth extraction H/O total hip arthroplasty Family History Father Unknown family medical history Mother Unknown family medical history Social History Housing: House Alcohol intake: current Alcohol intake frequency: a few times a month Alcohol type: beer Patient Tobacco Use Status: Former Tobacco user Years Smoked: 5 years e-Cigarette/Vaping Use: Never Used service: Yes Current occupational status: retired Current occupational exposures/hazards: No Cognitive needs: No Hearing needs: No Vision needs: Yes Review of Systems Const Denies chills, Denies fatigue, Denies fever(s), Denies frequent falls, Denies weakness, Denies weight gain and Denies weight loss ENT Denies dizziness Card Denies chest pain, Denies leg edema, Denies lightheadedness, Denies palpitations, Denies dyspnea and Denies dyspnea on exertion Resp Denies cough, Denies dyspnea and Denies dyspnea on exertion GI Denies hematochezia Musc Denies abnormal gait, Denies muscle weakness, Denies numbness, Denies radiating pain into limb and Denies tingling Neuro Denies abnormal gait, Denies dizziness, Denies frequent falls, Denies numbness, Denies tingling and Denies weakness Endo Denies fatigue and Denies palpitations Physical Exam Vital Signs: Last Vital Signs Pulse 68 07/11/24 10:00 BP 130/80 07/11/24 10:00 BMI result Body Mass Index 30.1 GENERAL APPEARANCE: in no acute distress, well developed, well nourished. NECK/THYROID: no carotid bruit, no jugular venous distention. SKIN: no suspicious lesions, warm and dry. HEART: Systolic murmur (decreases with handgrip) regular rate and rhythm, S1, S2 normal. LUNGS: clear to auscultation bilaterally. ABDOMEN: normal, bowel sounds present, soft, nontender, nondistended. EXTREMITIES: no clubbing, cyanosis, or edema. PERIPHERAL PULSES: equal. NEUROLOGIC: nonfocal, alert and oriented. PSYCH: mood/affect full range. Office Procedures EKG Details: Sinus rhythm 68 beats per minute, normal axis, normal ECG, QTC 401 milliseconds. 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 He was seen for perioperative cardiovascular risk assessment and had premature ventricular complexes which led to echocardiography showing systolic anterior motion of mitral valve chordae only, systolic anterior motion of the mitral valve leaflets was not noted. He was advised to keep himself well hydrated. He underwent surgery and has done fine since then. He is physically active and has no exertional symptoms. Once again I have advised him to keep himself well hydrated. Last echocardiography was in August of 2023 we will left ventricular systolic function was hyperdynamic, no dynamic LVOT obstruction noted, dynamic mid left ventricular obstruction was noted with indeterminate filling pressures. Clinically stable and he can follow up with us once a year. Thank you for allowing me to participate in the care of your patient. Please feel free to contact me if you have any questions. Coding Level of Care Code Est Pt Level 4 (45611) Complex EM visit Add On G2211 Diagnoses Systolic anterior movement of mitral valve I34.8 Asymptomatic PVCs I49.3 CPT Codes EKG - CPT: 97123-[id number], Complete ([id number])
[2024-07-11 10:00] VITALS: BP 130/80; PULSE 68; BMI 30.1
== END 2024-07-11 10:24 | disposition home or self-care (01) ==
PROVIDERS: PCP Nurse Practitioner Family; Visit Provider Internal Medicine Cardiovascular Disease
DX: I34.89 Other nonrheumatic mitral valve disorders (principal); I49.3 Ventricular premature depolarization
CPT/HCPCS: 93010; 99214; G2211

== ENCOUNTER → 2024-07-11 09:27 | Outpatient (BNVA) | payer MEDICARE, SELFPAY | PROVIDERS: PCP Nurse Practitioner Family; Visit Provider Internal Medicine Cardiovascular Disease | DX: I34.89 Other nonrheumatic mitral valve disorders (principal); I49.3 Ventricular premature depolarization; Z87.891 Personal history of nicotine dependence | CPT/HCPCS: 93005; 99212 ==

== ENCOUNTER 2024-07-23 08:03 | Outpatient (AMB) | payer MEDICARE, SELFPAY ==
[2024-07-23 08:08] VITALS: BP 118/72; PULSE 101; TEMP 36.7; O2SAT 97
--- NOTE | 2024-07-23 08:08 | MHC.OFFWIV ---
Intake Vital Signs 07/23/24 08:08 Weight 205 lb BP 118/72 Blood Pressure Location Rt brachial Position Sitting Pulse 101 H Pulse Source Pulse Oximeter Temp 98.1 F Temp Source Oral Pulse Oximetry (%) 97 Oxygen Delivery Method Room Air Intake Visit Reasons: EP head cold Intake Note: Patient here for sinus pressure that has been present for about 2 days. Patient Tobacco Use Status: Former Tobacco user Allergies Penicillins [PENICILLINS] Allergy (Intermediate, Verified 07/23/24 08:16) SWELLING OF THUMBS penicillin V Allergy (Unknown, Verified 07/23/24 08:16) hives Do you need a note to return to daycare/school/sports/work: No HPI HPI Comments History of Present Illness Details 79 y/o Male Patient who presents to the walk in clinic with c/o URI symptoms x 2 days. Pt reports Sinus pressure, cough, chest congestion and red eyes. [facility] Medical History (Updated 07/23/24 @ 08:33 by Jesenia Sahni NP) Bacterial conjunctivitis of both eyes Acute respiratory disease Asymptomatic PVCs Sciatica Hip arthritis Surgical History History of wisdom tooth extraction H/O total hip arthroplasty Family History Father Unknown family medical history Mother Unknown family medical history Social History Housing: House Alcohol intake: current Alcohol intake frequency: a few times a month Alcohol type: beer Patient Tobacco Use Status: Former Tobacco user Years Smoked: 5 years e-Cigarette/Vaping Use: Never Used service: Yes Current occupational status: retired Current occupational exposures/hazards: No Cognitive needs: No Hearing needs: No Vision needs: Yes Review of Systems Const All systems reviewed & are unremarkable except as noted in HPI and below Physical Exam Vital Signs: Last Vital Signs Temp 98.1 F 07/23/24 08:08 Pulse 101 H 07/23/24 08:08 BP 118/72 07/23/24 08:08 Pulse Ox 97 07/23/24 08:08 Oxygen Delivery Method Room Air 07/23/24 08:08 Const General: no acute distress Nutritional Appearance: overweight Orientation/consciousness: patient oriented x3 HEENT Head: Yes normocephalic Ears: external ears normal and TM abnormal with fluid behind the TM General nose exam: Nasal discharge present Face and sinus: Yes sinuses nontender Mouth: moist mucous membranes Throat: Yes uvula midline Eyes Conjunctivae: conjunctival abnormal bilateral conjunctival injection diffuse and discharge purulent Pupils: Equal, round and reactive pupils present EOM: EOMs intact bilaterally Resp Other: Raspy voice Effort & Inspection: normal respiratory effort and able to speak in complete sentences Auscultation: clear to auscultation bilaterally, no crackles, no rales, no rhonchi and no wheezes Cardio Rate: regular rate Heart sounds: S1 normal heart sound present and S2 normal heart sound present Neuro General: patient oriented x3 Cranial nerves: Yes Equal, round and reactive pupils present Assessment & Plan Assessment & Plan (1) Acute respiratory disease: Code(s): J06.9 - Acute upper respiratory infection, unspecified Plan: Ordered SARs Rest and hydrate well with warm fluids. Acetaminophen for pain relief OTC cough/cold remedies. (2) Bacterial conjunctivitis of both eyes: Code(s): H10.9 - Unspecified conjunctivitis; B96.89 - Other specified bacterial agents as the cause of diseases classified elsewhere Plan: Ordered Eye Drops Abx Maintain a good Eye hygiene. Orders: Orders SARS-CoV2/FLU/RSV Today J06.9 - Acute upper respiratory infection, unspecified Medications: New dextromethorphan-guaifenesin 5-100 mg/5 mL (Mucinex Fast-Max DM Max) 10 mL PO Q4-8H PRN 1,000 mL 0RF cough J06.9 - Acute upper respiratory infection, unspecified benzonatate 200 mg (2 x 100 mg) PO BID 60 caps 0RF J06.9 - Acute upper respiratory infection, unspecified ciprofloxacin HCl 0.3% put 1-2 drps in affected eye(s) every 2hr up to 8 times/day for 2 days; Then 4 times/day for 5 days. 10 mL 0RF B96.89 - Other specified bacterial agents as the cause of diseases classified elsewhere, H10.9 - Unspecified conjunctivitis Coding Level of Care Code Est Pt Level 4 (51621) Diagnoses Acute respiratory disease J06.9 Bacterial conjunctivitis of both eyes H10.9; B96.89 Time Spent (min) 20
== END 2024-07-23 08:37 | disposition home or self-care (01) ==
PROVIDERS: PCP Nurse Practitioner Family; Visit Provider Nurse Practitioner Family
DX: J06.9 Acute upper respiratory infection, unspecified (principal); H10.9 Unspecified conjunctivitis; B96.89 Other specified bacterial agents as the cause of diseases classified elsewhere

== ENCOUNTER 2024-07-23 08:03 | Outpatient (REF) | payer MEDICARE, SELFPAY ==
[2024-07-23 11:25] LABS: Influenza A PCR NEGATIVE (Negative); Influenza B PCR NEGATIVE (Negative); Resp Syncy Virus RNA Qual PCR NEGATIVE (Negative); SARS COV2 PCR INHOUSE NEGATIVE (Negative)
== END 2024-07-23 08:04 | disposition home or self-care (01) ==
LOC: HO.LAB 08:03
PROVIDERS: PCP Nurse Practitioner Family; Visit Provider Nurse Practitioner Family
DX: J06.9 Acute upper respiratory infection, unspecified (principal); H10.9 Unspecified conjunctivitis; B96.89 Other specified bacterial agents as the cause of diseases classified elsewhere
CPT/HCPCS: 0241U; 99212

== ENCOUNTER 2024-08-10 08:02 | Outpatient (REF) | payer MEDICARE, SELFPAY ==
--- NOTE | ~2024-08-10 | XR_ITS ---
EXAMINATION: XR HAND 3 OR MORE VIEWS RIGHT HISTORY: R60.0 - Localized edema COMPARISON: There are no prior studies available for comparison. FINDINGS: Three views of the right hand are submitted. Osseous mineralization is normal. There is no fracture or dislocation. There is mild narrowing of the interphalangeal joint of the thumb as well as the joint spaces of the radial aspect of the carpus. There is soft tissue swelling over the PIP joint of the middle finger. XR/XR hand RT min 3V IMPRESSION: 1. Soft tissue swelling about the PIP joint of the middle finger. No osseous abnormality is seen in this region. 2. Degenerative changes of the right hand as described. Electronically signed by: Tee Nelson MD 08/10/2024 08:57 AM EDT
== END 2024-08-10 08:03 | disposition home or self-care (01) ==
LOC: HO.HMGCX 08:02
PROVIDERS: PCP Nurse Practitioner Family; Visit Provider Physician Assistant
DX: R60.0 Localized edema (principal)
CPT/HCPCS: 73130; 99212

== ENCOUNTER 2024-08-10 08:02 | Outpatient (AMB) | payer MEDICARE, SELFPAY ==
[2024-08-10 08:08] VITALS: BP 130/90; PULSE 85; TEMP 36.4; O2SAT 97
--- NOTE | 2024-08-10 08:08 | MHC.OFFWIV ---
Intake Vital Signs 08/10/24 08:08 Weight 200 lb BP 130/90 H Blood Pressure Location Lt brachial Position Sitting Pulse 85 Pulse Source Pulse Oximeter Temp 97.5 F Temp Source Oral Pulse Oximetry (%) 97 Oxygen Delivery Method Room Air Intake Visit Reasons: EP LT middle finger swelling Intake Note: Patient here for left middle finger swelling that has been present for a couple of days. Patient Tobacco Use Status: Former Tobacco user Allergies Penicillins [PENICILLINS] Allergy (Intermediate, Verified 08/10/24 08:14) SWELLING OF THUMBS penicillin V Allergy (Unknown, Verified 08/10/24 08:14) hives Do you need a note to return to daycare/school/sports/work: No HPI HPI Comments History of Present Illness Details History of Present Illness - The patient is a 79 year old male presenting with right middle knuckle swelling and pain. - The swelling began a few days ago, with the worst pain experienced the previous night, but has since decreased in severity. - The swelling appeared without an inciting injury and was described as red and warm. - There is no personal history of gout or arthritis, though the patient's mother had gout. - The patient consumes seafood once or twice a week, which include a lot of tuna. - No recent tick bites or infectious symptoms noted, and the patient reports no cuts or injuries or fevers. Physical Exam General: Cooperative, healthy appearing, comfortable, no acute distress and well developed Orientation: Patient oriented x3 Limitations: No limitations Head: Normal to inspection Ears: Hearing grossly normal bilaterally Nose: Normal External nose present Face and sinus: Normal facial exam Eyes: Appearance normal, both eyes and all related structures Neck: Normal visual inspection and Yes full ROM Respiratory: Normal respiratory effort and able to speak in complete sentences. Skin: No rashes or lesions noted Neuro: Patient oriented x3 Extremities: right hand 3rd digit PIP with ttp, edema and erythema, rom limited with edema PFSH Medical History (Updated 08/10/24 @ 08:31 by Fani Barrera PA-C) Bacterial conjunctivitis of both eyes Acute respiratory disease Asymptomatic PVCs Sciatica Hip arthritis Surgical History History of wisdom tooth extraction H/O total hip arthroplasty Family History Father Unknown family medical history Mother Unknown family medical history Social History Housing: House Alcohol intake: current Alcohol intake frequency: a few times a month Alcohol type: beer Patient Tobacco Use Status: Former Tobacco user Years Smoked: 5 years e-Cigarette/Vaping Use: Never Used service: Yes Current occupational status: retired Current occupational exposures/hazards: No Cognitive needs: No Hearing needs: No Vision needs: Yes Review of Systems Const All systems reviewed & are unremarkable except as noted in HPI and below Physical Exam Vital Signs: Last Vital Signs Temp 97.5 F 08/10/24 08:08 Pulse 85 08/10/24 08:08 BP 130/90 H 08/10/24 08:08 Pulse Ox 97 08/10/24 08:08 Oxygen Delivery Method Room Air 08/10/24 08:08 Assessment & Plan Assessment & Plan (1) Edema of finger: Code(s): R60.0 - Localized edema Plan: Likely a gout flare. The treatment plan includes prescribing prednisone 40 mg daily for 5 days to reduce inflammation and swelling in the right knuckle, which is suspected to be a gout flare. Additionally, an x-ray of the right hand is arranged to assess for any potential joint or bone issues. I emphasized the importance of obtaining the imaging before starting prednisone and explained the expected side effects. If there are any significant findings, further management strategies will be discussed. The patient was informed about dietary modifications to prevent future gout flares, such as reducing intake of foods high in purines. All necessary education was provided regarding prednisone side effects and dietary modifications, and I will follow up with x-ray results. Patient was informed and verbally consented to the use of an ambient scribe for clinic note documentation during this visit. Orders: Orders XR hand RT min 3V Today R60.0 - Localized edema Medications: New prednisone 40 mg (2 x 20 mg) PO QAM 10 tabs 0RF Coding Level of Care Code Est Pt Level 4 (36639) Diagnoses Edema of finger R60.0
== END 2024-08-10 09:03 | disposition home or self-care (01) ==
PROVIDERS: PCP Nurse Practitioner Family; Visit Provider Physician Assistant
DX: R60.0 Localized edema (principal)

== ENCOUNTER → 2024-08-10 08:46 | Outpatient (BNV) | payer MEDICARE, SELFPAY | PROVIDERS: PCP Nurse Practitioner Family; Visit Provider Radiology Diagnostic Radiology | DX: R60.0 Localized edema (principal) | CPT/HCPCS: 73130 ==

== ENCOUNTER 2024-08-18 09:35 | Outpatient (AMB) | payer MEDICARE, SELFPAY ==
[2024-08-18 09:40] VITALS: BP 112/70; PULSE 98; RESP 16; TEMP 36.5; O2SAT 97; BMI 29.5
--- NOTE | 2024-08-18 09:40 | AM.OFFWIN_ITS ---
Intake Vital Signs 08/18/24 09:40 Height 5 ft 9 in Weight 200 lb BMI 29.5 BP 112/70 Blood Pressure Location Lt brachial Position Sitting Respiration 16 Pulse 98 Pulse Source Pulse Oximeter Temp 97.7 F Temp Source Oral Pulse Oximetry (%) 97 Oxygen Delivery Method Room Air Intake Visit Reasons: EP-LT middle finger swelling Intake Note: Pt is here today c/o Rt middle finger swollen: Was seen last week and treated with prednisone no improvement Patient Tobacco Use Status: Former Tobacco user Allergies Penicillins [PENICILLINS] Allergy (Intermediate, Verified 08/18/24 09:57) SWELLING OF THUMBS penicillin V Allergy (Unknown, Verified 08/18/24 09:57) hives Medication List - Last Reconciled 08/18/24 by Rao Jara MD aspirin (Adult Low Dose Aspirin) 81 mg PO DAILY doxycycline hyclate 100 mg PO BID 12 days metoprolol tartrate 25 mg PO BID prednisone 40 mg (2 x 20 mg) PO QAM HPI EP-LT middle finger swelling HPI Details Patient has swelling at right middle finger around PIP joint He had a recent x-ray which showed soft tissue swelling. He had been seen and was given prednisone Patient says this did not improve symptoms at all. No history of gout. No fevers or chills. [facility] Medical History (Updated 08/18/24 @ 11:34 by Rao Jara MD) Bacterial conjunctivitis of both eyes Acute respiratory disease Asymptomatic PVCs Sciatica Hip arthritis Surgical History History of wisdom tooth extraction H/O total hip arthroplasty Family History Father Unknown family medical history Mother Unknown family medical history Social History Housing: House Alcohol intake: current Alcohol intake frequency: a few times a month Alcohol type: beer Patient Tobacco Use Status: Former Tobacco user Years Smoked: 5 years e-Cigarette/Vaping Use: Never Used service: Yes Current occupational status: retired Current occupational exposures/hazards: No Cognitive needs: No Hearing needs: No Vision needs: Yes Review of Systems Const Denies chills, Denies fatigue, Denies fever(s), Denies headache(s) and Denies weakness ENT Denies dizziness and Denies headache(s) Card Denies dyspnea Resp Denies cough, Denies dyspnea, Denies wheezing and Denies other ( shortness of breath) Musc Denies numbness and Denies tingling Skin/Breast Details: Skin around right 3rd finger at PIP joint is erythematous and swollen Neuro Denies dizziness, Denies headache(s), Denies numbness, Denies tingling, Denies paresthesias and Denies weakness Psych Denies anxiety and Denies depression Endo Denies fatigue Aller/Immun Denies wheezing Physical Exam Vital Signs: Last Vital Signs Temp 97.7 F 08/18/24 09:40 Pulse 98 08/18/24 09:40 Resp 16 08/18/24 09:40 BP 112/70 08/18/24 09:40 Pulse Ox 97 08/18/24 09:40 Oxygen Delivery Method Room Air 08/18/24 09:40 BMI result Body Mass Index 29.5 Const General: no acute distress and well developed Nutritional Appearance: well nourished Orientation/consciousness: patient oriented x3 HEENT Head: Yes normocephalic and Yes atraumatic Eyes General: appearance normal, both eyes and all related structures Pupils: Equal, round and reactive pupils present EOM: EOMs intact bilaterally Resp Effort & Inspection: normal respiratory effort Auscultation: clear to auscultation bilaterally Cardio Rate: regular rate Rhythm: regular rhythm Heart sounds: S1 normal heart sound present, S2 normal heart sound present, no gallops, no murmurs and no rubs Skin Other: Skin around right 3rd finger at PIP joint is erythematous and swollen Mild tenderness Neuro General: patient oriented x3 and gait normal Cranial nerves: Yes Equal, round and reactive pupils present Psych Affect: normal affect Assessment & Plan Assessment & Plan (1) Swollen finger: Code(s): M79.89 - Other specified soft tissue disorders (2) Cellulitis, finger: Code(s): L03.019 - Cellulitis of unspecified finger Plan Swollen right middle finger and recent x-rays showed soft tissue swelling. A course of prednisone did not help making gout less likely He also has no history of gout Will check CBC and also uric acid level. This appears to be a cellulitis. He is allergic to penicillin Starting doxycycline Elevate Hand Follow-up with PCP Orders: Orders Uric Acid Today M79.89 - Other specified soft tissue disorders Basic Metabolic Panel Today M79.89 - Other specified soft tissue disorders, Z00.00 - Encounter for general adult medical examination without abnormal findings Complete Blood Count Auto Diff Today M79.89 - Other specified soft tissue disorders, Z00.00 - Encounter for general adult medical examination without abnormal findings Medications: New doxycycline hyclate 100 mg PO BID 12 days 24 tabs 0RF Coding Level of Care Code Est Pt Level 3 (46736) Diagnoses Swollen finger M79.89 Cellulitis, finger L03.019
== END 2024-08-18 11:53 | disposition home or self-care (01) ==
LOC: HO.HMCWIC 09:35
PROVIDERS: PCP Nurse Practitioner Family; Visit Provider Family Medicine
DX: M79.89 Other specified soft tissue disorders (principal); L03.019 Cellulitis of unspecified finger

== ENCOUNTER 2024-08-18 09:35 | Outpatient (REF) | payer MEDICARE, SELFPAY ==
[2024-08-18 14:10] LABS: MANUAL DIFF FLAG NO
[2024-08-18 14:15] LABS: Basophils Percent Auto 0.4 % (0-2); Eosinophils Absolute Auto 0.2 X10*3/uL (0.0-0.4); Eosinophils Percent Auto 2.9 % (0-4); Hematocrit 43.2 % (42.0-52.0); Hemoglobin 14.5 g/dl (14.0-18.0); Imm Gran Abs Auto 0.13 X10*3/uL (0.00-0.03); Imm Gran Pct Auto 1.6 % (0.0-0.4); Lymphocytes Absolute Auto 1.9 X10*3/uL (1.2-4.9); Lymphocytes Percent Auto 23.4 % (20-40); Mean Corpuscular HGB Conc 33.6 g/dl (31.0-36.0); Mean Corpuscular Hemoglobin 31.5 pg (27.0-33.0); Mean Corpuscular Volume 93.9 fL (80.0-98.0); Mean Platelet Volume 10.4 fL (9.4-12.4); Monocytes Absolute Auto 0.7 X10*3/uL (0.1-1.2); Monocytes Percent Auto 8.9 % (2-11); Neutrophils Absolute Auto 5.1 x10*3/uL (2.0-8.3); Neutrophils Percent Auto 62.8 % (45-73); Platelet Count 288 X10*3/uL (160-400); White Blood Count 8.1 X10*3/uL (4.8-10.8)
[2024-08-18 14:24] LABS: Anion Gap 12 (12-20); Blood Urea Nitrogen 19 mg/dL (9-16); Calcium 9.4 mg/dL (8.4-10.2); Carbon Dioxide 24 mmol/L (22-29); Chloride 105 mmol/L (96-108); Estimated Glomerular Filt Rate > 60; Glucose Random 103 mg/dL (60-115); Potassium 4.2 mmol/L (3.3-5.1); Sodium 137 mmol/L (135-145); Uric Acid 7.8 mg/dL (3.4-7.0)
== END 2024-08-18 09:36 | disposition home or self-care (01) ==
LOC: HO.HMGCLDS 09:35
PROVIDERS: PCP Nurse Practitioner Family; Visit Provider Family Medicine
DX: R60.0 Localized edema (principal); L03.019 Cellulitis of unspecified finger
CPT/HCPCS: 36415; 80048; 84550; 85025; 99212

== ENCOUNTER 2024-10-25 08:20 | Outpatient (AMB) | payer MEDICARE, SELFPAY ==
--- NOTE | 2024-10-25 08:28 | MHC.PC.OV ---
Vital Signs 10/25/24 08:33 Height 5 ft 9 in Weight 198 lb 4 oz BMI 29.3 BP 129/77 Blood Pressure Location Lt brachial Position Sitting Respiration 12 Pulse 77 Pulse Source Pulse Oximeter Temp 96.8 F Temp Source Temporal Artery Scan Pulse Oximetry (%) 96 Oxygen Delivery Method Room Air Intake Visit Reasons: f/u HTN, HLD, labs Intake Note: Follow up to review labs and joint issues [facility] [employer] [facility] Required: No Allergies Penicillins (PENICILLINS) Allergy (Intermediate, Verified 10/25/24 08:29) SWELLING OF THUMBS penicillin V Allergy (Unknown, Verified 10/25/24 08:29) hives Medication List - Last Reconciled 10/25/24 by Rao Jara MD aspirin (Adult Low Dose Aspirin) 81 mg PO DAILY doxycycline hyclate 100 mg PO BID 12 days metoprolol tartrate 25 mg PO BID prednisone 40 mg (2 x 20 mg) PO QAM 5 days Tobacco use date assessed: 10/25/24 Fall risk assessment: No Falls in past year Last assessed Fall Risk: 10/25/24 Dental Screening Dental Screen Date: 10/25/24 Did you have a dental visit in the last 12 months?: Yes Did you have a dental problem in the last 6 months where you did not have access to dental care?: No Was dental information given to patient?: Patient has dentist HPI f/u HTN, HLD, labs HPI Details Patient presents for follow-up hypertension. Taking metoprolol 25 mg twice a day No problems with this medication Patient does pushups and lifts weights each day. He also notes that he has had a couple of flare-ups of finger pain and swelling. Had gone to the ED and uric acid level was elevated. No finger pain today however. [facility] Medical History (Updated 10/25/24 @ 08:49 by Rao Jara MD) Bacterial conjunctivitis of both eyes Acute respiratory disease Asymptomatic PVCs Sciatica Hip arthritis Surgical History History of wisdom tooth extraction H/O total hip arthroplasty Family History Father Unknown family medical history Mother Unknown family medical history Social History Housing: House Alcohol intake: current Alcohol intake frequency: a few times a month Alcohol type: beer Patient Tobacco Use Status: Former Tobacco user Years Smoked: 5 years e-Cigarette/Vaping Use: Never Used service: Yes Current occupational status: retired Current occupational exposures/hazards: No Cognitive needs: No Hearing needs: No Vision needs: Yes Questionnaire Thrive Questionnaire Date Thrive assessed: 10/25/24 I am a: Patient What is your living situation today?: I have a steady place to live Within the past 12 months, did the food you bought not last and you didn't have the money to get more?: Never true Within the past 12 months, did you worry whether your food would run out before you got money to buy more?: Never true Do you have trouble paying for medicines?: No Do you have trouble getting transportation to medical appointments?: Yes Do you have trouble paying your heating and electricity bill?: No Do you have trouble taking care of your child, family member or friend?: No Do you have trouble with day-to-day activities such as bathing, preparing meals, shopping, managing finances, etc.?: No Are you currently unemployed and looking for a job?: No Are you interested in more education?: No Please select the resources that you would like help with: None Currently or been in a relationship where the following occur: No concerns reported THRIVE Score: 1 JENNIFER-7 AMB Questionnaire JENNIFER-7 Date JENNIFER - 7 assessed: 10/25/24 Feeling nervous, anxious, or on edge: 0 = Not at all Not being able to stop or control worryin = Not at all Worrying too much about different things: 0 = Not at all Trouble relaxin = Not at all Being so restless that it is hard to sit still: 0 = Not at all Becoming easily annoyed or irritable: 0 = Not at all Feeling afraid as if something awful might happen: 0 = Not at all Total JENNIFER-7 score (0-4 normal; 5-9 mild; 10-14 moderate; 15-21 severe): 0 Source: Developed by Drs. Tee Yu, Lanny Dixon, Miles Zee and colleagues, with an educational delphine from [employer]. JENNIFER-7 Assessment Billing JENNIFER-7 Assessment Tool: JENNIFER-7 Assessment 62417 Review of Systems Const Denies chills, Denies fatigue, Denies fever(s), Denies headache(s) and Denies weakness ENT Denies dizziness and Denies headache(s) Card Denies chest pain, Denies lightheadedness, Denies dyspnea and Denies other (Palpitations) Resp Denies cough, Denies dyspnea, Denies wheezing and Denies other ( shortness of breath) Musc Denies numbness and Denies tingling Neuro Denies dizziness, Denies headache(s), Denies numbness, Denies tingling, Denies paresthesias and Denies weakness Psych Denies anxiety and Denies depression Endo Denies fatigue Aller/Immun Denies wheezing Physical exam (Primary Care) Vital Signs: Last Vital Signs Temp 96.8 F 10/25/24 08:33 Pulse 77 10/25/24 08:33 Resp 12 10/25/24 08:33 BP 129/77 10/25/24 08:33 Pulse Ox 96 10/25/24 08:33 Oxygen Delivery Method Room Air 10/25/24 08:33 BMI result Body Mass Index 29.3 Tobacco/Smoking Status: Tobacco use Status Tobacco use date assessed 10/25/24 10/25/24 08:36 Patient Tobacco Use Status Former Tobacco user 10/25/24 08:36 e-Cigarette/Vaping Use Never Used 10/25/24 08:36 Thrive Assessment: Date of Thrive Assessment Date Thrive assessed 10/25/24 10/25/24 08:36 Currently or been in a relationship where the following occur: No concerns reported Const General: no acute distress and well developed Nutritional Appearance: well nourished Orientation/consciousness: patient oriented x3 [facility] Head: Yes normocephalic and Yes atraumatic Eyes General: appearance normal, both eyes and all related structures Pupils: Equal, round and reactive pupils present EOM: EOMs intact bilaterally Resp Effort & Inspection: normal respiratory effort Auscultation: clear to auscultation bilaterally Cardio Rate: regular rate Rhythm: regular rhythm Heart sounds: S1 normal heart sound present, S2 normal heart sound present, no gallops, no murmurs and no rubs Neuro General: patient oriented x3 and gait normal Cranial nerves: Yes Equal, round and reactive pupils present Psych Affect: normal affect Coding Level of Care Code Est Pt Level 3 (24441) Diagnoses Hypertension I10 Gout M10.9 Additional Codes JENNIFER-7 Assessment Billing - JENNIFER-7 Assessment Tool: JENNIFER-7 Assessment 16011 ([id number]) Assessment & Plan Assessment & Plan (1) Hypertension: Code(s): I10 - Essential (primary) hypertension Category: Medical Plan: Blood pressure is controlled. Goal is less than 130/80 Continue current medication Encouraged sodium and salt avoid Encouraged exercise and weight control (2) Gout: Code(s): M10.9 - Gout, unspecified Category: Medical Plan: Patient had recent swelling of finger in August and uric acid level was high. He notes more recently had another flare up of swelling and pain which has now resolved Will check uric acid level and we can discuss at upcoming appointment. Orders: Orders Comprehensive [place]. Panel Fast Today Z00.00 - Encounter for general adult medical examination without abnormal findings Free T4 (Free Thyroxine) Today E03.9 - Hypothyroidism, unspecified Thyroid Stimulating Hormone Today E03.9 - Hypothyroidism, unspecified Triiodothyronine T3 Total Today E03.9 - Hypothyroidism, unspecified Lipid Panel Today Z00.00 - Encounter for general adult medical examination without abnormal findings Microalbumin, Random (w Creat) Today I10 - Essential (primary) hypertension Hemoglobin A1c Today R73.01 - Impaired fasting glucose Uric Acid Today M79.89 - Other specified soft tissue disorders
[2024-10-25 08:33] VITALS: BP 129/77; PULSE 77; RESP 12; TEMP 36; O2SAT 96; BMI 29.3
== END 2024-10-25 08:50 | disposition home or self-care (01) ==
LOC: HO.HMCFM 08:20
PROVIDERS: PCP Family Medicine; Visit Provider Family Medicine
DX: I10 Essential (primary) hypertension (principal); M10.9 Gout, unspecified

== ENCOUNTER → 2024-10-25 08:20 | Outpatient (BNVA) | payer MEDICARE, SELFPAY | PROVIDERS: PCP Family Medicine; Visit Provider Family Medicine | DX: I10 Essential (primary) hypertension (principal); E78.5 Hyperlipidemia, unspecified; M10.9 Gout, unspecified; E03.9 Hypothyroidism, unspecified; R73.01 Impaired fasting glucose; M79.89 Other specified soft tissue disorders | CPT/HCPCS: 96127; 99212 ==